=== PATIENT | male | born 1950 | race Caucasian/White ===

== ENCOUNTER 2017-08-29 22:28 | Inpatient (IN) ==
[2017-08-29] MEDS ORDERED: ONDANSETRON 4 MG/2 ML VIAL IV STA (23:07)
[2017-08-29] MEDS ORDERED: ASPIRIN 325 MG TABLET PO STA (23:07)
[2017-08-29] MEDS ORDERED: ALBUTEROL/IPRATROPIUM 3 ML NEB RESP TX STA (23:07)
[2017-08-29] MEDS ORDERED: FUROSEMIDE 100 MG/10 ML VIAL IV STA (23:07)
[2017-08-29] MEDS ORDERED: MORPHINE 2 MG/1 ML SYRINGE IV STA (23:07)
[2017-08-29] MEDS ORDERED: NITROGLYCERIN 2% OINT 1 INCH/GM PACK TOP STA (23:07)
[2017-08-29 23:38] LABS: Basophils % 0.2 % (0.0-0.8); Eosinophils # 0.1 10*3/uL (0.0-0.87); Eosinophils % 1.2 % (0.00-10.9); Hematocrit 37.6 VOL% (42.0-52.0); Hemoglobin 12.9 GM/DL (14.0-18.0); Immature Granulocytes % 0.4 %; Immature Granulocytes Absolute 0.03 #; Lymphocytes # 1.1 10*3/uL (1.4-4.0); Lymphocytes % 13.6 % (21.2-54.2); Mean Corpuscular HGB Conc 34.3 GM/DL (32-36); Mean Corpuscular Hemoglobin 31 PG (27-34); Mean Corpuscular Volume 89.1 FL (87-102); Mean Platelet Volume 11.4 FL (9.6-12.0); Monocytes # 0.7 10*3/uL (0.11-0.8); Neutrophils # 6.3 10*3/uL (1.4-7.4); Neutrophils % 76.6 % (38.7-73.9); Platelet Count 105 T/CUMM (130-400); Red Blood Count 4.22 MC/CUMM (3.8-5.5); Red Cell Distribution Width 13.3 % (9.3-17.3); White Blood Count 8.2 T/CUMM (4-12)
[2017-08-29 23:48] LABS: PT Patient Result 10.6 SECS
[2017-08-30] MEDS ORDERED: FUROSEMIDE 40 MG/4 ML VIAL ONE ×2 (00:05→07:23)
[2017-08-30] MEDS ORDERED: NITROGLYCERIN 2% OINT 1 INCH/GM PACK TOP ONE ×2 (00:05→07:00)
[2017-08-30] MEDS ORDERED: FUROSEMIDE 20 MG/2 ML VIAL ONE (00:05)
[2017-08-30] MEDS ORDERED: MORPHINE 2 MG/1 ML SYRINGE ONE (00:05)
[2017-08-30] MEDS ORDERED: ONDANSETRON 4 MG/2 ML VIAL ONE (00:05)
[2017-08-30] MEDS ORDERED: ASPIRIN 325 MG TABLET ONE (00:05)
[2017-08-30 00:44] LABS: Albumin 3.6 G/DL (3.4-5.0); Bilirubin,Total 0.7 MG/DL (0.2-1.0); Calcium 8.4 MG/DL (8.5-10.1); Magnesium 1.9 MG/DL (1.8-2.4); Osmolality,Calculated 287.7 MOS/KG (273-304); Potassium 4.3 MMOL/L (3.5-5.1); Total Protein 7.2 G/DL (6.4-8.3); Troponin I Only 0.11 NG/ML (0.00-0.045)
[2017-08-30] MEDS ORDERED: ALBUTEROL/IPRATROPIUM 3 ML NEB RESP TX PRN (02:22)
[2017-08-30] MEDS ORDERED: DEXTROSE 50% 25 GM/50 ML VIAL IV PRN (02:22)
[2017-08-30] MEDS ORDERED: MORPHINE 2 MG/1 ML SYRINGE IV PRN (02:22)
[2017-08-30] MEDS ORDERED: ONDANSETRON 4 MG/2 ML VIAL IV PRN (02:22)
[2017-08-30] MEDS ORDERED: GLUCAGON 1 MG VIAL IM PRN (02:22)
[2017-08-30] MEDS ORDERED: MAGNESIUM SULF RIDER 2 GM in PREMIX 1 EACH IV PRN ×2 (02:22→11:28)
[2017-08-30] MEDS ORDERED: MAGNESIUM SULF RIDER 4 GM in PREMIX 1 EACH IV PRN (02:22)
[2017-08-30] MEDS ORDERED: ENOXAPARIN 40 MG/0.4 ML SYRINGE ONE (03:57)
[2017-08-30] MEDS: SODIUM CHLORIDE 0.9% 1,000 ML IV SCH (04:11)
[2017-08-30] MEDS: ENOXAPARIN 40 MG/0.4 ML SYRINGE SUBCUT SCH (04:11)
[2017-08-30 06:00] LABS: Basophils % 0.4 % (0.0-0.8); Eosinophils # 0.2 10*3/uL (0.0-0.87); Eosinophils % 2.5 % (0.00-10.9); Hematocrit 37.6 VOL% (42.0-52.0); Hemoglobin 12.8 GM/DL (14.0-18.0); Immature Granulocytes % 0.4 %; Immature Granulocytes Absolute 0.03 #; Lymphocytes # 1.7 10*3/uL (1.4-4.0); Lymphocytes % 21.5 % (21.2-54.2); Mean Corpuscular Hemoglobin 30 PG (27-34); Mean Corpuscular Volume 88.9 FL (87-102); Monocytes # 0.9 10*3/uL (0.11-0.8); Monocytes % 10.7 % (1.7-12.7); Neutrophils # 5.2 10*3/uL (1.4-7.4); Neutrophils % 64.5 % (38.7-73.9); Platelet Count 133 T/CUMM (130-400); Red Blood Count 4.23 MC/CUMM (3.8-5.5); Red Cell Distribution Width 13.5 % (9.3-17.3); White Blood Count 8.1 T/CUMM (4-12)
[2017-08-30 06:48] LABS: Albumin 3.6 G/DL (3.4-5.0); Bilirubin,Total 0.9 MG/DL (0.2-1.0); Calcium 8.7 MG/DL (8.5-10.1); Magnesium 1.8 MG/DL (1.8-2.4); Osmolality,Calculated 289.5 MOS/KG (273-304); Risk Ratio 3.39; Thyroid Stimulating Hormone 0.843 uIU/ml (0.358-3.74); Total Protein 7.1 G/DL (6.4-8.3); VLDL CHOLESTEROL 28.4 MG/DL
[2017-08-30] MEDS: NITROGLYCERIN 2% OINT 1 INCH/GM PACK TOP SCH ×3 (07:04→17:49)
[2017-08-30 07:09] LABS: Troponin I Only 0.553 NG/ML (0.00-0.045)
[2017-08-30] MEDS ORDERED: INSULIN REGULAR 100 UNIT/ML ONE ×2 (07:46→12:08)
[2017-08-30] MEDS: FUROSEMIDE 40 MG/4 ML VIAL IV SCH ×2 (07:51→16:36)
[2017-08-30] MEDS: INSULIN REGULAR 100 UNIT/ML SUBCUT SCH ×4 (07:51→21:49)
[2017-08-30] MEDS ORDERED: ASPIRIN CHEW 81 MG TABLET PO ONE (08:52)
[2017-08-30] MEDS ORDERED: PANTOPRAZOLE 40 MG TABLET PO ONE (08:52)
[2017-08-30] MEDS ORDERED: ASPIRIN EC 81 MG TABLET PO SCH (09:00)
[2017-08-30] MEDS: PANTOPRAZOLE 40 MG TABLET PO SCH (09:02)
[2017-08-30 10:24] LABS: Troponin I Only 0.779 NG/ML (0.00-0.045)
[2017-08-30] MEDS ORDERED: diphenhydrAMINE CAP 25 MG CAPSULE PO ONE (11:28)
[2017-08-30] MEDS ORDERED: POTASSIUM CHLORIDE RIDER 10 MEQ in PREMIX 1 EACH IV PRN (11:28)
[2017-08-30] MEDS ORDERED: DIAZEPAM 5 MG TABLET PO ONE (11:28)
[2017-08-30] MEDS: ACETYLCYSTEINE 600 MG CAPSULE PO SCH ×2 (13:35→21:48)
[2017-08-30] MEDS ORDERED: LOPERAMIDE 2 MG CAPSULE PO ONE (16:22)
[2017-08-30] MEDS ORDERED: ACETAMINOPHEN 325 MG TABLET PO PRN (17:31)
[2017-08-30] MEDS ORDERED: diphenhydrAMINE CAP 25 MG CAPSULE PO PRN (17:32)
[2017-08-30] MEDS ORDERED: BISACODYL 5 MG TABLET PO PRN (17:32)
[2017-08-30] MEDS: glyBURIDE 5 MG TABLET PO SCH (17:48)
[2017-08-30] MEDS ORDERED: LORazepam 0.5 MG TABLET PO ONE (20:18)
[2017-08-30] MEDS ORDERED: LORazepam 0.5 MG TABLET PO PRN (20:20)
[2017-08-30] MEDS: CARVEDILOL 25 MG TABLET PO SCH (21:48)
[2017-08-31] MEDS: NITROGLYCERIN 2% OINT 1 INCH/GM PACK TOP SCH ×4 (00:08→17:37)
[2017-08-31] MEDS: ENOXAPARIN 40 MG/0.4 ML SYRINGE SUBCUT SCH (02:56)
[2017-08-31] MEDS: SODIUM CHLORIDE 0.9% 1,000 ML IV SCH (02:58)
[2017-08-31 04:28] LABS: Basophils % 0.6 % (0.0-0.8); Eosinophils # 0.2 10*3/uL (0.0-0.87); Eosinophils % 3.2 % (0.00-10.9); Hematocrit 37.8 VOL% (42.0-52.0); Immature Granulocytes % 0.6 %; Immature Granulocytes Absolute 0.04 #; Lymphocytes # 1.4 10*3/uL (1.4-4.0); Mean Corpuscular HGB Conc 34.4 GM/DL (32-36); Mean Corpuscular Hemoglobin 30 PG (27-34); Mean Corpuscular Volume 88.3 FL (87-102); Mean Platelet Volume 11.3 FL (9.6-12.0); Monocytes # 0.8 10*3/uL (0.11-0.8); Monocytes % 10.7 % (1.7-12.7); Neutrophils # 4.6 10*3/uL (1.4-7.4); Neutrophils % 64.9 % (38.7-73.9); Platelet Count 135 T/CUMM (130-400); Red Blood Count 4.28 MC/CUMM (3.8-5.5); Red Cell Distribution Width 13.2 % (9.3-17.3); White Blood Count 7.1 T/CUMM (4-12)
[2017-08-31 04:36] LABS: Calcium 8.9 MG/DL (8.5-10.1); Magnesium 1.7 MG/DL (1.8-2.4); Osmolality,Calculated 287.3 MOS/KG (273-304); Potassium 3.5 MMOL/L (3.5-5.1)
[2017-08-31 04:44] LABS: Risk Ratio 3.58; VLDL CHOLESTEROL 37.2 MG/DL
[2017-08-31] MEDS: POTASSIUM CHLORIDE 20 MEQ TABLET PO PRN ×2 (05:15→07:48)
[2017-08-31] MEDS ORDERED: diphenhydrAMINE CAP 25 MG CAPSULE PO ONE (06:00)
[2017-08-31] MEDS ORDERED: DIAZEPAM 5 MG TABLET PO ONE (06:00)
[2017-08-31] MEDS ORDERED: ONDANSETRON 4 MG TABLET PO PRN (06:05)
[2017-08-31] MEDS: ACETYLCYSTEINE 600 MG CAPSULE PO SCH ×2 (08:36→22:20)
[2017-08-31] MEDS: CLOPIDOGREL 75 MG TABLET PO SCH (08:36)
[2017-08-31] MEDS: CARVEDILOL 25 MG TABLET PO SCH ×2 (08:37→22:20)
[2017-08-31] MEDS: LOSARTAN 25 MG TABLET PO SCH (08:37)
[2017-08-31] MEDS: INSULIN REGULAR 100 UNIT/ML SUBCUT SCH ×4 (08:52→21:20)
[2017-08-31] MEDS ORDERED: ASPIRIN EC 81 MG TABLET PO SCH (09:00)
[2017-08-31] MEDS ORDERED: PANTOPRAZOLE 40 MG TABLET PO SCH (09:00)
[2017-08-31] MEDS ORDERED: POTASSIUM CHLORIDE 20 MEQ TABLET PO SCH (09:00)
[2017-08-31] MEDS ORDERED: MAGNESIUM CHLORIDE 64 MG TABLET PO SCH (09:00)
[2017-08-31] MEDS ORDERED: FUROSEMIDE 40 MG TABLET PO SCH (09:00)
[2017-08-31] MEDS ORDERED: LIDOCAINE 1% 20 ML VIAL ONE (09:09)
[2017-08-31] MEDS ORDERED: fentaNYL 100 MCG/2 ML VIAL ONE (09:14)
[2017-08-31] MEDS ORDERED: MIDAZOLAM 2 MG/2 ML VIAL ONE (09:14)
[2017-08-31] MEDS ORDERED: SODIUM CHLORIDE 0.9% 1,000 ML IV SCH (10:45)
[2017-08-31] MEDS: MAGNESIUM CHLORIDE 64 MG TABLET PO SCH ×2 (11:17→22:20)
[2017-08-31] MEDS: POTASSIUM CHLORIDE 20 MEQ TABLET PO SCH ×2 (11:17→22:20)
[2017-08-31] MEDS: ROSUVASTATIN 20 MG TABLET PO SCH (11:18)
[2017-08-31] MEDS: CALCIUM (CARBONATE)/VITAMIN D 600 MG-400 UNIT TABLET PO SCH (11:18)
[2017-08-31] MEDS: glyBURIDE 5 MG TABLET PO SCH ×2 (11:18→17:35)
[2017-08-31] MEDS: NIACIN ER 500 MG TABLET PO SCH (11:18)
[2017-08-31] MEDS: PANTOPRAZOLE 40 MG TABLET PO SCH (11:19)
[2017-08-31] MEDS: FUROSEMIDE 40 MG/4 ML VIAL IV SCH ×2 (11:21→17:36)
[2017-09-01 05:09] LABS: Basophils % 0.3 % (0.0-0.8); Eosinophils # 0.3 10*3/uL (0.0-0.87); Eosinophils % 3.7 % (0.00-10.9); Hematocrit 35.8 VOL% (42.0-52.0); Hemoglobin 12.2 GM/DL (14.0-18.0); Immature Granulocytes % 0.3 %; Immature Granulocytes Absolute 0.02 #; Lymphocytes # 1.2 10*3/uL (1.4-4.0); Lymphocytes % 18.1 % (21.2-54.2); Mean Corpuscular HGB Conc 34.1 GM/DL (32-36); Mean Corpuscular Hemoglobin 30 PG (27-34); Mean Corpuscular Volume 89.1 FL (87-102); Mean Platelet Volume 11.2 FL (9.6-12.0); Monocytes % 14.9 % (1.7-12.7); Neutrophils # 4.3 10*3/uL (1.4-7.4); Neutrophils % 62.7 % (38.7-73.9); Platelet Count 127 T/CUMM (130-400); Red Blood Count 4.02 MC/CUMM (3.8-5.5); Red Cell Distribution Width 12.9 % (9.3-17.3); White Blood Count 6.8 T/CUMM (4-12)
[2017-09-01 05:41] LABS: Calcium 8.5 MG/DL (8.5-10.1); Magnesium 2.1 MG/DL (1.8-2.4); Osmolality,Calculated 287.5 MOS/KG (273-304); Potassium 3.8 MMOL/L (3.5-5.1)
[2017-09-01 05:47] LABS: Calcium 8.6 MG/DL (8.5-10.1); Osmolality,Calculated 287.5 MOS/KG (273-304); Potassium 3.8 MMOL/L (3.5-5.1)
[2017-09-01] MEDS: NITROGLYCERIN 2% OINT 1 INCH/GM PACK TOP SCH ×3 (07:12→11:45)
[2017-09-01 08:08] VITALS: BP 113/60
[2017-09-01] MEDS: FUROSEMIDE 40 MG/4 ML VIAL IV SCH (08:51)
[2017-09-01] MEDS: MAGNESIUM CHLORIDE 64 MG TABLET PO SCH (08:52)
[2017-09-01] MEDS: INSULIN REGULAR 100 UNIT/ML SUBCUT SCH ×2 (08:52→11:30)
[2017-09-01] MEDS: NIACIN ER 500 MG TABLET PO SCH (08:53)
[2017-09-01] MEDS: CALCIUM (CARBONATE)/VITAMIN D 600 MG-400 UNIT TABLET PO SCH (08:53)
[2017-09-01] MEDS: ROSUVASTATIN 20 MG TABLET PO SCH (08:53)
[2017-09-01] MEDS: PANTOPRAZOLE 40 MG TABLET PO SCH (08:54)
[2017-09-01] MEDS: CLOPIDOGREL 75 MG TABLET PO SCH (08:54)
[2017-09-01] MEDS: glyBURIDE 5 MG TABLET PO SCH (08:54)
[2017-09-01] MEDS: CARVEDILOL 25 MG TABLET PO SCH (08:55)
[2017-09-01] MEDS: POTASSIUM CHLORIDE 20 MEQ TABLET PO SCH (08:55)
[2017-09-01] MEDS: ACETYLCYSTEINE 600 MG CAPSULE PO SCH (08:56)
[2017-09-01] MEDS: LOSARTAN 25 MG TABLET PO SCH (08:56)
== END 2017-09-01 12:10 | disposition home or self-care (01) | DRG 286 ==
LOC: N.ED 22:28 → N.EDINP 08-30 00:56 → N.TELES 08-30 12:35
PROVIDERS: ADMIT Internal Medicine Cardiovascular Disease; ATTEND Internal Medicine Cardiovascular Disease

== ENCOUNTER 2019-08-14 12:59 | Observation (INO) ==
[2019-08-14 13:40] LABS: Basophils % 0.2 % (0.0-0.8); Eosinophils # 0.1 10*3/uL (0.0-0.87); Hemoglobin 14.4 GM/DL (14.0-18.0); Immature Granulocytes % 0.4 %; Immature Granulocytes Absolute 0.03 #; Lymphocytes # 1.3 10*3/uL (1.4-4.0); Lymphocytes % 15.4 % (21.2-54.2); Mean Corpuscular HGB Conc 34.3 GM/DL (32-36); Mean Corpuscular Volume 84.7 FL (87-102); Mean Platelet Volume 10.9 FL (9.6-12.0); Monocytes % 10.9 % (1.7-12.7); Neutrophils % 72.1 % (38.7-73.9); Platelet Count 135 T/CUMM (130-400); Red Blood Count 4.96 MC/CUMM (3.8-5.5); Red Cell Distribution Width 13.5 % (9.3-17.3); White Blood Count 8.1 T/CUMM (4-12)
[2019-08-14 13:54] LABS: Bilirubin,Total 0.7 MG/DL (0.2-1.0); Calcium 8.7 MG/DL (8.5-10.1); Osmolality,Calculated 284.8 MOS/KG (273-304); Total Protein 6.8 G/DL (6.4-8.3)
[2019-08-14] MEDS ORDERED: POTASSIUM CHLORIDE 20 MEQ TABLET PO STA (14:16)
[2019-08-14 15:18] LABS: Apearance,Urine CLEAR (Clear); Bilirubin,Urine Negative (Negative); Blood, Urine Negative (Negative); Glucose,Urine (UA) Negative (Negative); Hyaline Casts,Urine 1 /LPF (0-3); Ketones,Urine Negative (Negative); Mucus,Urine Occasional /LPF (Occasional); Nitrite,Urine Negative (Negative); Protein,Urine >=500 MG/DL; RBC,Urine 2 /HPF (0-4); Urine Color Yellow (Yellow); Urine Specific Gravity 1.018 (1.001-1.035); WBC,Urine <1 /HPF (0-6)
[2019-08-14] MEDS ORDERED: ONDANSETRON 4 MG/2 ML VIAL IV PRN (15:38)
[2019-08-14] MEDS ORDERED: ACETAMINOPHEN 325 MG TABLET PO PRN (15:38)
[2019-08-14] MEDS ORDERED: GLUCAGON 1 MG VIAL IM PRN (16:03)
[2019-08-14] MEDS ORDERED: DEXTROSE 50% 25 GM/50 ML VIAL IV PRN (16:03)
[2019-08-14 16:17] LABS: Risk Ratio 3.29; Thyroid Stimulating Hormone 0.511 uIU/ml (0.358-3.74)
[2019-08-14] MEDS: INSULIN LISPRO 100 UNIT/ML SUBCUT SCH (17:08)
[2019-08-14] MEDS: SODIUM CHLORIDE 0.9% 1,000 ML IV SCH (17:09)
[2019-08-14] MEDS ORDERED: MAGNESIUM CITRATE 300 ML BOTTLE PO ONE (18:25)
[2019-08-14] MEDS ORDERED: ENOXAPARIN 30 MG/0.3 ML SYRINGE SUBCUT SCH (21:00)
[2019-08-15] MEDS: SODIUM CHLORIDE 0.9% 1,000 ML IV SCH (02:32)
[2019-08-15 04:49] LABS: Basophils % 0.2 % (0.0-0.8); Eosinophils % 0.3 % (0.00-10.9); Hematocrit 38.6 VOL% (42.0-52.0); Immature Granulocytes % 0.5 %; Immature Granulocytes Absolute 0.05 #; Lymphocytes # 1.3 10*3/uL (1.4-4.0); Lymphocytes % 12.4 % (21.2-54.2); Mean Corpuscular HGB Conc 33.7 GM/DL (32-36); Mean Platelet Volume 11.5 FL (9.6-12.0); Monocytes % 9.9 % (1.7-12.7); Neutrophils % 76.7 % (38.7-73.9); Platelet Count 119 T/CUMM (130-400); Red Blood Count 4.49 MC/CUMM (3.8-5.5); Red Cell Distribution Width 13.6 % (9.3-17.3); White Blood Count 10.7 T/CUMM (4-12)
[2019-08-15 05:12] LABS: Calcium 8.2 MG/DL (8.5-10.1); Osmolality,Calculated 284.7 MOS/KG (273-304)
[2019-08-15] MEDS ORDERED: CLOPIDOGREL 75 MG TABLET PO SCH (09:00)
[2019-08-15] MEDS ORDERED: ASPIRIN EC 81 MG TABLET PO SCH (09:00)
[2019-08-15] MEDS ORDERED: PANTOPRAZOLE 40 MG TABLET PO SCH (09:00)
[2019-08-15] MEDS ORDERED: SIMVASTATIN 40 MG TABLET PO SCH (09:00)
[2019-08-15] MEDS ORDERED: SIMVASTATIN 80 MG TABLET PO SCH (09:00)
[2019-08-15] MEDS: INSULIN LISPRO 100 UNIT/ML SUBCUT SCH (09:58)
[2019-08-15 13:21] VITALS: BP 172/84
[2019-08-15] MEDS ORDERED: INFLUENZA VIRUS VACCINE 0.5 ML SYRINGE IM ONE (17:31)
== END 2019-08-15 15:00 | disposition home or self-care (01) ==
LOC: EDBD → EDUNIT# → N.EDINP 12:59 → N.ED 12:59 → N.2W 16:23
PROVIDERS: ADMIT Family Medicine; ATTEND Family Medicine

== ENCOUNTER 2021-02-22 15:35 | Inpatient (IN) ==
[2021-02-22 16:11] LABS: Basophils % 0.4 % (0.0-0.8); Eosinophils # 0.2 10*3/uL (0.0-0.87); Hematocrit 41.1 VOL% (42.0-52.0); Hemoglobin 13.6 GM/DL (14.0-18.0); Immature Granulocytes % 0.5 %; Immature Granulocytes Absolute 0.05 #; Lymphocytes # 1.2 10*3/uL (1.4-4.0); Lymphocytes % 12.1 % (21.2-54.2); Mean Corpuscular HGB Conc 33.1 GM/DL (32-36); Mean Corpuscular Volume 93.6 FL (87-102); Mean Platelet Volume 11.3 FL (9.6-12.0); Monocytes % 8.1 % (1.7-12.7); Neutrophils % 76.9 % (38.7-73.9); Platelet Count 124 T/CUMM (130-400); Red Blood Count 4.39 MC/CUMM (3.8-5.5); Red Cell Distribution Width 13.5 % (9.3-17.3); White Blood Count 9.5 T/CUMM (4-12)
[2021-02-22 16:22] LABS: Bilirubin,Total 0.4 MG/DL (0.2-1.0); Calcium 8.6 MG/DL (8.5-10.1); Osmolality,Calculated 287.5 MOS/KG (273-304); Potassium 4.5 MMOL/L (3.5-5.1)
[2021-02-22] MEDS ORDERED: GLUCAGON 1 MG VIAL IM PRN ×2 (18:11)
[2021-02-22] MEDS ORDERED: ONDANSETRON 4 MG/2 ML VIAL IV PRN (18:11)
[2021-02-22] MEDS ORDERED: DEXTROSE 50% 25 GM/50 ML VIAL IV PRN ×2 (18:11)
[2021-02-22] MEDS ORDERED: HEPARIN DRIP 25,000 UNITS/500 ML PREMIX IV SCH (18:30)
[2021-02-22] MEDS ORDERED: hydrALAZINE 20 MG/1 ML VIAL IV PRN (19:04)
[2021-02-22] MEDS: ATORVASTATIN 40 MG TABLET PO SCH (21:02)
[2021-02-22] MEDS: INSULIN LISPRO 100 UNIT/ML SUBCUT SCH (21:35)
[2021-02-23 03:54] LABS: Basophils % 0.5 % (0.0-0.8); Eosinophils # 0.2 10*3/uL (0.0-0.87); Eosinophils % 2.3 % (0.00-10.9); Hematocrit 42.4 VOL% (42.0-52.0); Hemoglobin 13.6 GM/DL (14.0-18.0); Immature Granulocytes % 0.3 %; Immature Granulocytes Absolute 0.02 #; Lymphocytes # 1.4 10*3/uL (1.4-4.0); Lymphocytes % 21.1 % (21.2-54.2); Mean Corpuscular HGB Conc 32.1 GM/DL (32-36); Mean Corpuscular Volume 95.7 FL (87-102); Mean Platelet Volume 10.5 FL (9.6-12.0); Monocytes % 9.5 % (1.7-12.7); Neutrophils % 66.3 % (38.7-73.9); Platelet Count 117 T/CUMM (130-400); Red Blood Count 4.43 MC/CUMM (3.8-5.5); Red Cell Distribution Width 13.5 % (9.3-17.3); White Blood Count 6.6 T/CUMM (4-12)
[2021-02-23 04:24] LABS: Calcium 8.5 MG/DL (8.5-10.1); Osmolality,Calculated 292.5 MOS/KG (273-304); Potassium 3.6 MMOL/L (3.5-5.1); Risk Ratio 4.04; Thyroid Stimulating Hormone 1.15 uIU/ml (0.358-3.74); VLDL CHOLESTEROL 52.6 MG/DL
[2021-02-23] MEDS ORDERED: ENOXAPARIN 100 MG/ML SYRINGE SUBCUT ONE (07:47)
[2021-02-23] MEDS: INSULIN LISPRO 100 UNIT/ML SUBCUT SCH ×4 (08:58→20:35)
[2021-02-23] MEDS ORDERED: PANTOPRAZOLE 40 MG TABLET PO SCH (09:00)
[2021-02-23] MEDS ORDERED: MAGNESIUM SULF RIDER 2 GM/50 ML PREMIX IV PRN (09:03)
[2021-02-23] MEDS ORDERED: POTASSIUM CHLORIDE RIDER 10 MEQ/100 ML PREMIX IV PRN (09:03)
[2021-02-23] MEDS ORDERED: DIAZEPAM 5 MG TABLET PO ONE (09:03)
[2021-02-23] MEDS ORDERED: diphenhydrAMINE CAP 25 MG CAPSULE PO ONE (09:03)
[2021-02-23] MEDS: NITROGLYCERIN SL 0.4 MG TABLET SL SCH (09:08)
[2021-02-23] MEDS: CALCIUM (CARBONATE)/VITAMIN D 600 MG-400 UNIT TABLET PO SCH (09:09)
[2021-02-23] MEDS: POTASSIUM CHLORIDE 20 MEQ TABLET PO SCH (09:09)
[2021-02-23] MEDS: MAGNESIUM CHLORIDE 64 MG TABLET PO SCH (09:09)
[2021-02-23] MEDS: amLODIPine 10 MG TABLET PO SCH (09:10)
[2021-02-23] MEDS: NIACIN ER 500 MG TABLET PO SCH (09:10)
[2021-02-23] MEDS: ASPIRIN EC 81 MG TABLET PO SCH (09:11)
[2021-02-23] MEDS: TAMSULOSIN 0.4 MG CAPSULE PO SCH (09:11)
[2021-02-23] MEDS: PANTOPRAZOLE 40 MG TABLET PO SCH (09:11)
[2021-02-23] MEDS: CLOPIDOGREL 75 MG TABLET PO SCH (09:11)
[2021-02-23] MEDS: DEXTROSE 5% NACL 0.45% 1,000 ML IV SCH ×2 (09:11→18:05)
[2021-02-23] MEDS: INSULIN GLARGINE 100 UNIT/ML SUBCUT SCH ×2 (09:14→20:36)
[2021-02-23] MEDS: ACETYLCYSTEINE 600 MG CAPSULE PO SCH ×2 (09:21→20:35)
[2021-02-23 09:38] LABS: INR 1.5; PT Patient Result 16.3 SECS (10.5-12.0)
[2021-02-23] MEDS ORDERED: diphenhydrAMINE CAP 25 MG CAPSULE PO PRN (09:40)
[2021-02-23] MEDS ORDERED: MIDAZOLAM 2 MG/2 ML VIAL ONE (16:15)
[2021-02-23] MEDS ORDERED: LIDOCAINE 1% 20 ML VIAL ONE (16:15)
[2021-02-23] MEDS ORDERED: fentaNYL 100 MCG/2 ML VIAL ONE (16:16)
[2021-02-23] MEDS ORDERED: TIROFIBAN 5,000 MCG/100 ML PREMIX IV ONE (16:53)
[2021-02-23] MEDS ORDERED: ENOXAPARIN 30 MG/0.3 ML SYRINGE ONE (16:53)
[2021-02-23] MEDS ORDERED: TIROFIBAN 5,000 MCG/100 ML PREMIX IV SCH (16:59)
[2021-02-23] MEDS ORDERED: CLOPIDOGREL 300 MG TABLET ONE (17:10)
[2021-02-23] MEDS ORDERED: GLUCAGON 1 MG VIAL IM PRN (17:24)
[2021-02-23] MEDS ORDERED: DEXTROSE 50% 25 GM/50 ML VIAL IV PRN (17:24)
[2021-02-23] MEDS ORDERED: MELATONIN 3 MG TABLET PO PRN (19:55)
[2021-02-23] MEDS: ATORVASTATIN 40 MG TABLET PO SCH (20:35)
[2021-02-24 06:01] LABS: Basophils % 0.3 % (0.0-0.8); Eosinophils # 0.4 10*3/uL (0.0-0.87); Eosinophils % 5.5 % (0.00-10.9); Hematocrit 37.8 VOL% (42.0-52.0); Hemoglobin 12.3 GM/DL (14.0-18.0); Immature Granulocytes % 0.3 %; Immature Granulocytes Absolute 0.02 #; Lymphocytes # 1.2 10*3/uL (1.4-4.0); Lymphocytes % 18.7 % (21.2-54.2); Mean Corpuscular HGB Conc 32.5 GM/DL (32-36); Mean Corpuscular Volume 93.8 FL (87-102); Mean Platelet Volume 11.1 FL (9.6-12.0); Monocytes % 10.9 % (1.7-12.7); Neutrophils % 64.3 % (38.7-73.9); Platelet Count 112 T/CUMM (130-400); Red Blood Count 4.03 MC/CUMM (3.8-5.5); Red Cell Distribution Width 13.2 % (9.3-17.3); White Blood Count 6.6 T/CUMM (4-12)
[2021-02-24 06:02] LABS: INR 1.3; PT Patient Result 14.3 SECS (10.5-12.0)
[2021-02-24 06:14] LABS: Calcium 8.6 MG/DL (8.5-10.1); Osmolality,Calculated 288.4 MOS/KG (273-304); Potassium 4.1 MMOL/L (3.5-5.1)
[2021-02-24 08:31] VITALS: BP 150/76
[2021-02-24] MEDS: INSULIN LISPRO 100 UNIT/ML SUBCUT SCH (09:00)
[2021-02-24] MEDS: NIACIN ER 500 MG TABLET PO SCH (09:00)
[2021-02-24] MEDS: NITROGLYCERIN SL 0.4 MG TABLET SL SCH ×2 (09:03→09:46)
[2021-02-24] MEDS: MAGNESIUM CHLORIDE 64 MG TABLET PO SCH (09:04)
[2021-02-24] MEDS: POTASSIUM CHLORIDE 20 MEQ TABLET PO SCH (09:04)
[2021-02-24] MEDS: TAMSULOSIN 0.4 MG CAPSULE PO SCH (09:04)
[2021-02-24] MEDS: PANTOPRAZOLE 40 MG TABLET PO SCH (09:04)
[2021-02-24] MEDS: ASPIRIN EC 81 MG TABLET PO SCH (09:04)
[2021-02-24] MEDS: CLOPIDOGREL 75 MG TABLET PO SCH (09:04)
[2021-02-24] MEDS: CALCIUM (CARBONATE)/VITAMIN D 600 MG-400 UNIT TABLET PO SCH (09:04)
[2021-02-24] MEDS: amLODIPine 10 MG TABLET PO SCH (09:04)
[2021-02-24] MEDS: INSULIN GLARGINE 100 UNIT/ML SUBCUT SCH (09:05)
[2021-02-24] MEDS: ACETYLCYSTEINE 600 MG CAPSULE PO SCH (09:14)
[2021-02-24] MEDS ORDERED: ISOSORBIDE MONONITRATE 30 MG TABLET PO SCH (10:30)
== END 2021-02-24 11:56 | disposition home or self-care (01) | DRG 247 ==
LOC: EDBD → EDUNIT# → N.ED 15:35 → N.EDINP 18:11 → N.TELES 20:28
PROVIDERS: ADMIT Internal Medicine Geriatric Medicine; ATTEND Internal Medicine Geriatric Medicine